=== PATIENT | male | born 1990 | race Two or more races ===

== ENCOUNTER 2017-02-28 19:56 | Emergency (ER) | payer OTHER ==
[~2017-02-28] VITALS: Ht 188 cm; Wt 81.5 kg
[2017-02-28 20:14] VITALS: BP 131/76
[2017-02-28] MEDS ORDERED: SODIUM CHLORIDE FLUSH 10ML SYR IVF ONE (20:30)
== END 2017-02-28 20:43 | disposition left against medical advice (07) ==
LOC: ED 20:37
DX: S39.92XA Unspecified injury of lower back, initial encounter (principal); S36.30XA Unspecified injury of stomach, initial encounter; W21.11XA Struck by baseball bat, initial encounter; Y93.89 Activity, other specified; Y99.8 Other external cause status; Y92.89 Other specified places as the place of occurrence of the external cause
CPT/HCPCS: 99281